=== PATIENT | male | born 1990 | race African-American/Black ===

== ENCOUNTER 2016-10-30 19:01 | Emergency (ER) | payer OTHER ==
[2016-10-30] MEDS ORDERED: ONDANSETRON DISINTEGRATING 4 MG TAB ONE (19:42)
[2016-10-30] MEDS ORDERED: ONDANSETRON DISINTEGRATING 4 MG TAB PO ONE (19:44)
[2016-10-30] MEDS ORDERED: IBUPROFEN 600 MG TAB PO ONE (20:07)
[2016-10-30] MEDS ORDERED: ONDANSETRON 4MG PREPACK#2 BTL TAKEHOME ONE (20:10)
--- NOTE | 2016-10-30 20:10 | EDPHY ---
H & P Time Seen by Provider: 10/30/16 19:56 HPI/ROS: CHIEF COMPLAINT: Head injury HISTORY OF PRESENT ILLNESS: 25-year-old man a concussion 5 years ago playing basketball and was knocked unconscious for 15 seconds. His recovery at that time was about 3 weeks. Tonight at 5:30 p.m. he was playing basketball when he collided with another player. He did not lose consciousness or have a seizure. He got dizzy and was seeing double and had nausea with the headache and presents the emergency department for evaluation. His visual symptoms have resolved. His dizziness is better. He is not vomiting. He still has a headache which is stable. Denies neck pain or vertigo. REVIEW OF SYSTEMS: Eye: HPI ENT: no sore throat Cardiac: no chest pain or syncope Pulmonary: no cough or SOB Abdomen: no vomiting, diarrhea, abdominal pain Musculoskeletal: no back pain Skin: no rash Neuro: HPI Constitutional: no fever : no urinary symptoms A comprehensive 10 point review of systems is otherwise negative aside from elements mentioned in the history of present illness. PAST MEDICAL HISTORY: Concussion as above Social history: Professional maitre d, no alcohol General Appearance: Alert and conversant, cooperative. Eyes: No scleral icterus. Number extraocular motion intact, pupils equal reactive. ENT, Mouth: Normal mucous membranes. No hemotympanum or bruising behind the mastoid or around the eyes. Respiratory: Normal respiratory effort, breath sounds equal, lungs are clear to auscultation. Cardiovascular: Regular rate and rhythm. Gastrointestinal: Abdomen is soft and non tender. Neurological: Alert and oriented x3. Normally conversant. Face symmetric, normal movement and sensation in all extremities. Not ataxic. Romberg negative. Normal [id number] and no pronator drift. Fluent speech. Can stand on 1 leg independently. Skin: Warm and dry, no rashes. Musculoskeletal: No cervical thoracic or lumbar spine tenderness. Psychiatric: Not agitated. Emergency Department course/MDM: Patient does not have red flags to suggest he is high risk for intracranial bleeding or traumatic subdural or subarachnoid or skull fracture. Zofran ODT and 600 mg oral ibuprofen. His retail performance coach is here with him, and will spend the night with him and will check on him for head injury per instructions. Was warned to wake him up about every 4 hours to check on him during the night. Smoking Status: Never smoked Constitutional: Initial Vital Signs Temperature (C) 37 C 10/30/16 19:13 Heart Rate 91 10/30/16 19:13 Respiratory Rate 16 10/30/16 19:13 Blood Pressure 136/78 H 10/30/16 19:13 O2 Sat (%) 96 10/30/16 19:13 O2 Delivery Mode Room Air Allergies/Adverse Reactions: No Known Allergies Allergy (Unverified 10/30/16 19:17) Home Medications: Medication Instructions Recorded NK [No Known Home Meds] 10/30/16 MDM/Departure - MDM Medications Given: Discontinued Medications Ondansetron HCl (Zofran Odt) 4 mg PO EDNOW ONE Stop: 10/30/16 19:45 Last Admin: 10/30/16 19:45 Dose: 4 mg Ondansetron HCl (Zofran Odt 4 Mg Prepack#2) 1 btl TAKEHOME EDNOW ONE Stop: 10/30/16 20:11 Last Admin: 10/30/16 20:48 Dose: 1 btl - Depart Disposition: Home, Routine, Self-Care Clinical Impression: Concussion Qualifiers: Encounter type: initial encounter Loss of consciousness presence/duration: without LOC Qualified Code(s): S06.0X0A - Concussion without loss of consciousness, initial encounter Condition: Good Instructions: Ondansetron (By mouth), Concussion (ED) Additional Instructions: Follow-up tomorrow with Dr. Black from [facility] [place] [facility] or our neurologist. No basketball or contact sports until your cleared by follow-up physician. Referrals: Damian Murdock MD [Medical Doctor] - As per Instructions
[2016-10-30 20:55] VITALS: BP 132/74; PULSE 81; RESP 15; TEMP 98.1; O2SAT 97
== END 2016-10-30 20:54 | disposition home or self-care (01) ==
DX: S06.0X0A Concussion without loss of consciousness, initial encounter (principal); W51.XXXA Accidental striking against or bumped into by another person, initial encounter; Y99.8 Other external cause status; Y93.67 Activity, basketball